=== PATIENT | male | born 1990 | race American Indian/Alaskan Native ===

== ENCOUNTER 2018-10-01 02:43 | Emergency (ER) | payer OTHER ==
[2018-10-01 02:49] VITALS: BP 119/76
--- NOTE | 2018-10-01 07:07 | Emergency Department Report ---
ED General Adult HPI - General Chief complaint: Dental/Oral Stated complaint: TOOTHACHE EAR PAIN Time Seen by Provider: 10/01/18 06:24 Source: patient Mode of arrival: Ambulatory Limitations: No Limitations - History of Present Illness Initial comments: This is a 28-year-old man who has had intermittent right lower mandibular toothache which somewhat radiates all the way to his occiput. He has no ear pain per se and his occiput is not specifically sore. He denies fever or chills. He states that he has had problems with his teeth chronically. He has not attempted to see a dentist. He said no drainage of pus. This had no facial swelling. -: Gradual, week(s) Location: face (teeth) Radiation: other (as above) Quality: aching Consistency: intermittent Improves with: none Worsens with: none Associated Symptoms: denies other symptoms Treatments Prior to Arrival: none - Related Data Previous Rx's Medication Instructions Recorded Last Taken Type Amoxicillin/K Clav [Augmentin 1 tab PO Q8H #30 tablet 08/29/13 Unknown Rx 500MG] traMADol [Ultram] 50 mg PO Q4HR PRN #15 tablet 08/29/13 Unknown Rx Clindamycin [Clindamycin CAP] 150 mg PO Q8HR #20 capsule 10/01/18 Unknown Rx HYDROcodone/APAP 5-325 [[place] 1 each PO Q6HR PRN #7 tablet 10/01/18 Unknown Rx 5/325] Allergies Allergy/AdvReac Type Severity Reaction Status Date / Time No Known Allergies Allergy Verified 08/29/13 06:47 ED Review of Systems ROS: Stated complaint: TOOTHACHE EAR PAIN Other details as noted in HPI Constitutional: denies: chills, fever, malaise, weakness Eyes: denies: eye pain, eye discharge, vision change ENT: as per HPI. denies: ear pain, throat pain Respiratory: denies: cough, shortness of breath, wheezing Cardiovascular: denies: chest pain, palpitations Endocrine: no symptoms reported Gastrointestinal: denies: abdominal pain, nausea, diarrhea Genitourinary: denies: urgency, dysuria Musculoskeletal: denies: back pain, joint swelling, arthralgia Skin: denies: rash, lesions Neurological: denies: headache, weakness, paresthesias Psychiatric: denies: anxiety, depression Hematological/Lymphatic: denies: easy bleeding, easy bruising ED Past Medical Hx - Past Medical History Previous Medical History?: No - Surgical History Past Surgical History?: Yes Additional Surgical History: 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 - Social History Smoking Status: Current Every Day Smoker Substance Use Type: None - Medications Home Medications: Home Medications Medication Instructions Recorded Confirmed Last Taken Type Amoxicillin/K Clav [Augmentin 1 tab PO Q8H #30 tablet 08/29/13 Unknown Rx 500MG] traMADol [Ultram] 50 mg PO Q4HR PRN #15 tablet 08/29/13 Unknown Rx Clindamycin [Clindamycin CAP] 150 mg PO Q8HR #20 capsule 10/01/18 Unknown Rx HYDROcodone/APAP 5-325 [[place] 1 each PO Q6HR PRN #7 tablet 10/01/18 Unknown Rx 5/325] ED Physical Exam - General Limitations: No Limitations General appearance: alert, in no apparent distress - Head Head exam: Present: atraumatic, normocephalic - Eye Eye exam: Present: normal appearance, scleral icterus - ENT ENT exam: Present: normal orophraynx (partially edentulous carious dentition), mucous membranes moist, TM's normal bilaterally (normal on the left), other (occipital is nontender not red and not swollen) - Neck Neck exam: Present: normal inspection, lymphadenopathy. Absent: tenderness, meningismus - Respiratory Respiratory exam: Present: normal lung sounds bilaterally. Absent: respiratory distress - Cardiovascular Cardiovascular Exam: Present: regular rate, normal rhythm. Absent: systolic murmur, diastolic murmur, rubs, gallop - GI/Abdominal GI/Abdominal exam: Present: soft, normal bowel sounds. Absent: distended, tenderness, guarding, rebound - Rectal Rectal exam: Present: deferred - Extremities Exam Extremities exam: Present: normal inspection - Back Exam Back exam: Present: normal inspection - Neurological Exam Neurological exam: Present: alert, oriented X3, CN II-XII intact - Psychiatric Psychiatric exam: Present: normal affect, normal mood - Skin Skin exam: Present: warm, dry, intact, normal color. Absent: rash ED Course Vital Signs 10/01/18 10/01/18 02:48 06:17 Temperature 98.5 F 97.8 F Pulse Rate 74 63 Respiratory 18 16 Rate Blood Pressure 119/76 O2 Sat by Pulse 99 98 Oximetry Critical care attestation.: If time is entered above; I have spent that time in minutes in the direct care of this critically ill patient, excluding procedure time. ED Disposition Clinical Impression: Dentalgia Disposition: TO HOME OR SELFCARE Is pt being admited?: No Does the pt Need Aspirin: No Condition: Stable Instructions: Toothache (ED) Additional Instructions: Further evaluation with a dentist or your previous oral surgeon is strongly recommended. See referral for primary care clinic as well. Rx antibiotic and something for pain at this point. Dental imaging studies are needed. Prescriptions: Clindamycin [Clindamycin CAP] 150 mg PO Q8HR #20 capsule HYDROcodone/APAP 5-325 [[place] 5/325] 1 each PO Q6HR PRN #7 tablet PRN Reason: Pain Referrals: PRIMARY CARE, [Primary Care Provider] - 3-5 Days [facility] [Provider Group] - 2-3 Days Time of Disposition: 07:07
[2018-10-01] MEDS ORDERED: NORCO 5/325 PO ONE (07:08)
== END 2018-10-01 07:28 | disposition home or self-care (01) ==
LOC: ED 02:43
DX: K08.89 Other specified disorders of teeth and supporting structures (principal); F17.200 Nicotine dependence, unspecified, uncomplicated
CPT/HCPCS: 99282